=== PATIENT | female | born 1930 | race Hispanic/Latino ===

== ENCOUNTER 2017-10-05 03:15 | Emergency (ER) | payer MEDICARE, MEDICAID ==
[2017-10-05 04:52] LABS: Bilirubin Negative (Negative); Blood, Urine Negative (Negative); Clarity CLEAR (Clear); Glucose, Urine (Dipstick) >=1000 mg/dL (Negative); Leukocyte Negative (Negative); Nitrite Negative (Negative); Protein, Urine (Dipstick) Negative (Neg-Trace); Specific Gravity, Urine 1.035 (1.002-1.036); Urobilinogen 0.2 mg/dL (0.2-1.0); pH, Urine 5.5 (5.0-9.0)
== END 2017-10-05 06:05 | disposition home or self-care (01) ==
LOC: ERS 03:15
DX: B34.9 Viral infection, unspecified (principal); I10 Essential (primary) hypertension; E11.9 Type 2 diabetes mellitus without complications; F41.9 Anxiety disorder, unspecified; F32.9 Major depressive disorder, single episode, unspecified
CPT/HCPCS: 81003; 87804

== ENCOUNTER 2017-11-09 17:20 | Outpatient (CLI) | payer MEDICARE, MEDICAID | END 2017-11-09 17:21 | disposition home or self-care (01) | LOC: BICRAD 17:20 | PROVIDERS: ATTEND Internal Medicine | DX: R05 Cough (principal) | CPT/HCPCS: 71046 ==

== ENCOUNTER 2018-02-04 14:37 | Outpatient (CLI) | payer MEDICARE, MEDICAID | END 2018-02-04 14:38 | disposition home or self-care (01) | LOC: BICRAD 14:37 | PROVIDERS: ATTEND Internal Medicine | DX: J18.9 Pneumonia, unspecified organism (principal); J98.4 Other disorders of lung | CPT/HCPCS: 71046 ==

== ENCOUNTER 2018-03-10 13:26 | Emergency (ER) | payer MEDICARE, MEDICAID ==
[2018-03-10] MEDS ORDERED: Bacitracin Zinc 1 Packet ONE (14:13)
--- NOTE | 2018-03-10 15:14 | CT ---
BRAIN CT WITHOUT IV CONTRAST: Date: 03/10/18 HISTORY: 87-year-old female with history of injury to head from trauma after rolling out of bed last night wit h bleeding. Patient on Plavix. FINDINGS: No focal mass or midline shift. No intra or extra-axial hemorrhage. Age-related changes, stable. Bila teral kirby bullosa changes. Sinuses and mastoids are clear. IMPRESSION: No mass or bleed, or other acute process. Stable from prior study. POS: [facility]
--- NOTE | 2018-03-10 15:19 | CT ---
CERVICAL SPINE CT SCAN WITHOUT IV CONTRAST: Date: 03/10/18 HISTORY: 87-year-old female with history of neck injury following trauma after a fall from bed last night. FINDINGS: T1 is not completely included on this study. Multilevel disc osteophytosis and facet arthrosis change s are noted, most marked at C5-C6 and C1-C2. No evidence for acute fracture or facet dislocation. 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 Th e mastoids are clear. IMPRESSION: Spondylosis. No acute fracture or facet dislocation. T1 is not completely imaged on this study. POS: [facility]
[2018-03-10] MEDS ORDERED: Adacel (T-DAP) 0.5 ML VIAL ONE (15:35)
== END 2018-03-10 15:37 | disposition home or self-care (01) ==
LOC: ERS 13:26
DX: S01.01XA Laceration without foreign body of scalp, initial encounter (principal); I48.91 Unspecified atrial fibrillation; E11.9 Type 2 diabetes mellitus without complications; E78.5 Hyperlipidemia, unspecified; I10 Essential (primary) hypertension; F41.9 Anxiety disorder, unspecified; F32.9 Major depressive disorder, single episode, unspecified; W06.XXXA Fall from bed, initial encounter
CPT/HCPCS: 70450; 72125; 90471; 90715

== ENCOUNTER 2018-04-24 15:36 | Emergency (ER) | payer MEDICARE, MEDICAID ==
[2018-04-24] MEDS ORDERED: HYDROcodone/Acetaminophen 10/325 mg Tablet ONE (16:20)
--- NOTE | 2018-04-24 16:59 | RAD ---
RIGHT HUMERUS: 04/24/18 Two views. HISTORY: Upper arm pain and swelling. There are mild degenerative changes at the shoulder. Spurring from the humeral head and at the AC kendra nt. No fracture or acute abnormality identified. IMPRESSION: There are degenerative changes of the right shoulder. No acute process. POS: [facility]
== END 2018-04-24 17:08 | disposition home or self-care (01) ==
LOC: ERS 15:36
DX: S46.211A Strain of muscle, fascia and tendon of other parts of biceps, right arm, initial encounter (principal); S46.912A Strain of unspecified muscle, fascia and tendon at shoulder and upper arm level, left arm, initial encounter; I48.91 Unspecified atrial fibrillation; E11.9 Type 2 diabetes mellitus without complications; E78.5 Hyperlipidemia, unspecified; I10 Essential (primary) hypertension; F41.9 Anxiety disorder, unspecified; F32.9 Major depressive disorder, single episode, unspecified; X50.9XXA Other and unspecified overexertion or strenuous movements or postures, initial encounter; Y93.61 Activity, american tackle football